=== PATIENT | female | born 1950 | race Caucasian/White ===

== ENCOUNTER 2017-02-09 11:04 | Emergency (ER) | payer MEDICARE, MEDICAID ==
[~2017-02-09] VITALS: Ht 157.5 cm; Wt 72.6 kg
[2017-02-09 15:11] VITALS: BP 165/89
== END 2017-02-09 15:03 | disposition home or self-care (01) ==
LOC: ER 11:04 → EDBD 11:04 → EDSEX 11:04 → EDUNIT# 11:04 → ER 15:03
DX: M16.12 Unilateral primary osteoarthritis, left hip (principal); F17.210 Nicotine dependence, cigarettes, uncomplicated; Z00.00 Encounter for general adult medical examination without abnormal findings; W18.39XA Other fall on same level, initial encounter; Y93.89 Activity, other specified; Y92.89 Other specified places as the place of occurrence of the external cause; Y99.8 Other external cause status
CPT/HCPCS: 93005

== ENCOUNTER 2017-12-03 21:02 | Emergency (ER) | payer MEDICARE, MEDICAID ==
[~2017-12-03] VITALS: Ht 162.6 cm; Wt 81.6 kg
[2017-12-03 22:50] LABS: Basophils # (auto) 0 uL; Basophils % (auto) 0.6 % (0.0-2.0); Eosinophils # (auto) 0.1 uL; Hematocrit 37.6 % (36.0-46.0); Hemoglobin 12.8 g/dL (12.2-16.2); Lymphocytes # (auto) 1.6 uL; Lymphocytes % (auto) 21.9 % (10.0-50.0); Mean Corpuscular Hemoglobin 31.3 pg (28.0-32.0); Mean Corpuscular Hgb Conc. 33.9 g/dL (32.0-36.0); Mean Corpuscular Volume 92.3 fL (80.0-100.0); Monocytes # (auto) 0.7 uL; Monocytes % (auto) 9.3 % (0.0-12.0); Neutrophils % (auto) 67.2 % (37.0-80.0); Platelet Count (auto) 300 10^3/uL (140-450); Red Blood Cells 4.08 10^6/uL (4.0-5.20); Red Cell Distribution Width 14.9 % (11.8-14.3); White Blood Cell 7.4 10^3/uL (4.4-10.8)
[2017-12-03 23:06] LABS: Alanine Aminotransferase 18 U/L (13-56); Albumin 2.8 g/dL (3.4-5.0); Anion Gap 10 (5-15); Aspartate Aminotransferase 14 U/L (15-37); Blood Urea Nitrogen 13 mg/dL (7-18); Calcium 6.7 mg/dL (8.5-10.1); Carbon Dioxide 19 mmol/L (21-32); Chloride 102 mmol/L (98-107); GFR African American 131 mL/min; GFR Non-African American 108 mL/min; Glucose 91 mg/dL (74-106); Partial Thromboplastin Time 24.4 sec (23.78-33.04); Potassium 3.6 mmol/L (3.5-5.1); Prothrombin Time 10.7 sec (9.27-12.13); Sodium 131 mmol/L (136-145)
[2017-12-03 23:11] LABS: Alkaline Phosphatase 87 U/L (45-117); Bilirubin, Total 0.1 mg/dL (0.2-1.0); Total Protein 5.3 g/dL (6.4-8.2)
[2017-12-04 02:22] VITALS: BP 177/94
== END 2017-12-04 03:33 | disposition home or self-care (01) ==
LOC: EDBD 21:02 → ER 21:06
DX: R41.82 Altered mental status, unspecified (principal); G92 Toxic encephalopathy; F17.210 Nicotine dependence, cigarettes, uncomplicated; Z90.710 Acquired absence of both cervix and uterus; T42.4X1A Poisoning by benzodiazepines, accidental (unintentional), initial encounter; Y92.89 Other specified places as the place of occurrence of the external cause
CPT/HCPCS: 36415; 70450; 80053; 82962; 84484; 85025; 85610; 85730; 93005

== ENCOUNTER 2019-03-14 13:03 | Emergency (ER) | payer MEDICARE, MEDICAID ==
[~2019-03-14] VITALS: Ht 162.6 cm; Wt 81.6 kg
[2019-03-14 15:46] LABS: Basophils # (auto) 0.1 uL; Eosinophils # (auto) 0.1 uL; Eosinophils % (auto) 1.5 % (0.0-7.0); Hematocrit 35.2 % (36.0-46.0); Hemoglobin 11.7 g/dL (12.2-16.2); Lymphocytes # (auto) 1.7 uL; Lymphocytes % (auto) 29.5 % (10.0-50.0); Mean Corpuscular Hemoglobin 30.9 pg (28.0-32.0); Mean Corpuscular Hgb Conc. 33.2 g/dL (32.0-36.0); Monocytes # (auto) 0.6 uL; Neutrophils # (auto) 3.3 uL; Platelet Count (auto) 293 10^3/uL (140-450); Red Blood Cells 3.78 10^6/uL (4.0-5.20); Red Cell Distribution Width 17.1 % (11.8-14.3); White Blood Cell 5.7 10^3/uL (4.4-10.8)
[2019-03-14 15:58] LABS: Albumin 3.8 g/dL (3.4-5.0); Anion Gap 6 (5-15); BUN/Creatinine Ratio 22.8; Blood Alcohol < 3.0 mg/dL (0-5); Blood Urea Nitrogen 18 mg/dL (7-18); Calcium 9.3 mg/dL (8.5-10.1); Carbon Dioxide 26 mmol/L (21-32); Chloride 107 mmol/L (98-107); GFR African American 93 mL/min; GFR Non-African American 77 mL/min; Glucose 91 mg/dL (74-106); Magnesium 2.1 mg/dL (1.6-2.6); Potassium 4.3 mmol/L (3.5-5.1); Salicylate 2.3 mg/dL (2.8-20.0); Sodium 139 mmol/L (136-145)
[2019-03-14 16:01] LABS: Alanine Aminotransferase 20 U/L (13-56); Alkaline Phosphatase 88 U/L (45-117); Aspartate Aminotransferase 17 U/L (15-37); Bilirubin, Total 0.2 mg/dL (0.2-1.0)
[2019-03-14 16:14] LABS: Acetaminophen < 2.0 ug/mL (10-30)
[2019-03-14 16:17] LABS: Alcohol, Urine < 3.0 mg/dL (0-5)
[2019-03-14 16:19] LABS: Amphetamine Screen, Urine NEGATIVE (NEGATIVE); Barbiturate Scree,Urine NEGATIVE (NEGATIVE); Benzodiazephine Screen, Urine POSITIVE (NEGATIVE); Cannabinoid Screen, Urine NEGATIVE (NEGATIVE); Cocaine Screen, Urine NEGATIVE (NEGATIVE); Opiate Scree,Urine NEGATIVE (NEGATIVE); Phencyclidine Screen, Urine NEGATIVE (NEGATIVE)
[2019-03-14 16:34] LABS: Urine Amorphous Crystal FEW /hpf (None Seen); Urine Bacteria FEW /hpf (None Seen); Urine Blood Negative /uL (Negative); Urine Hyaline Cast FEW /lpf (0 - 2); Urine Mucus FEW (None Seen); Urine Specific Gravity 1.026 (1.001-1.035); Urine WBC 13 /hpf (0 - 5)
[2019-03-14] MEDS ORDERED: QUET50TA PO (19:06)
[2019-03-14] MEDS ORDERED: OXCA600T3 PO (19:10)
[2019-03-14] MEDS ORDERED: ALPR0.254 PO (19:10)
[2019-03-14] MEDS ORDERED: MIRT30TA PO (19:10)
[2019-03-14] MEDS ORDERED: CIPROFLOXACIN HCL 500 MG TAB PO ONE (22:00)
[2019-03-14] MEDS ORDERED: ACETAMINOPHEN 325 MG TAB PO ONE (22:30)
[2019-03-15] MEDS ORDERED: MIRTAZAPINE 30 MG TAB PO ONE (01:45)
[2019-03-15] MEDS ORDERED: hydrOXYzine 25 MG TAB or CAP PO PRN (01:45)
[2019-03-15] MEDS ORDERED: ALPRAZolam 0.25 MG TAB PO PRN (01:45)
[2019-03-15] MEDS ORDERED: QUEtiapine FUMARATE 25 MG TAB PO ONE (01:45)
[2019-03-15] MEDS ORDERED: DOCUSATE SOD 100 MG CAP PO PRN (01:45)
[2019-03-15] MEDS ORDERED: GABAPENTIN 300 MG CAP PO SCH (06:00)
[2019-03-15] MEDS ORDERED: OXcarbazepine 300 MG TAB PO SCH (10:00)
[2019-03-15] MEDS ORDERED: CHOLECALCIFEROL (VITD3) 1,000IU=25mCg TAB PO SCH (10:00)
[2019-03-15] MEDS ORDERED: LISINOPRIL 20 MG TAB PO SCH (10:00)
[2019-03-15] MEDS ORDERED: TICAGRELOR 60 MG TAB PO SCH (10:00)
[2019-03-15] MEDS ORDERED: ASPirin-EC 81 mg tab PO SCH (10:00)
[2019-03-15] MEDS ORDERED: CALCIUM CARB 500 MG CHEW TAB PO SCH (10:00)
[2019-03-15] MEDS ORDERED: FLUTICASONE PROP NASAL SPR 0.05 % (50MCG) 16GM EACHNOSTRI SCH (10:00)
[2019-03-15] MEDS ORDERED: FUROSEMIDE 20 MG TAB PO SCH (10:00)
[2019-03-15] MEDS ORDERED: METOPROLOL SUCCINATE XL 50 MG TAB PO SCH (10:00)
[2019-03-15 10:45] VITALS: BP 135/80
[2019-03-15] MEDS ORDERED: ATORVASTATIN 20 MG TAB PO SCH (22:00)
[2019-03-15] MEDS ORDERED: MIRTAZAPINE 30 MG TAB PO SCH (22:00)
[2019-03-15] MEDS ORDERED: QUEtiapine FUMARATE 25 MG TAB PO SCH (22:00)
== END 2019-03-15 11:00 | disposition short-term general hospital (02) ==
LOC: ER 13:03 → EDBD 13:03 → ER 03-15 11:00
DX: F32.9 Major depressive disorder, single episode, unspecified (principal); R45.851 Suicidal ideations; F41.9 Anxiety disorder, unspecified; I10 Essential (primary) hypertension; F17.210 Nicotine dependence, cigarettes, uncomplicated
CPT/HCPCS: 36415; 71045; 80053; 80307; 80320; 80329; 81001; 83735; 85025; 93005

== ENCOUNTER 2019-05-13 14:37 | Emergency (ER) | payer MEDICARE, MEDICAID ==
[~2019-05-13] VITALS: Ht 167.6 cm; Wt 81.6 kg
[~2019-05-13 14:37] MED LIST: ALPR0.254 PO; MIRT30TA PO; OXCA600T3 PO; QUET50TA PO
[2019-05-13] MEDS ORDERED: SODIUM CHLORIDE 0.9% 1,000 ML IV ONE (15:53)
[2019-05-13] MEDS ORDERED: PROMETHAZINE HCL 25 MG/ML 1ML IV ONE (16:00)
[2019-05-13] MEDS ORDERED: KETOROLAC TROMETH 15 mg/ml 1ML VL IV ONE (16:00)
[2019-05-13 16:54] LABS: Basophils # (auto) 0.1 uL; Basophils % (auto) 0.8 % (0.0-2.0); Eosinophils # (auto) 0 uL; Eosinophils % (auto) 0.4 % (0.0-7.0); Hematocrit 35.3 % (36.0-46.0); Hemoglobin 11.5 g/dL (12.2-16.2); Lymphocytes # (auto) 1.7 uL; Lymphocytes % (auto) 21.4 % (10.0-50.0); Mean Corpuscular Hemoglobin 28.7 pg (28.0-32.0); Mean Corpuscular Hgb Conc. 32.6 g/dL (32.0-36.0); Mean Corpuscular Volume 88.1 fL (80.0-100.0); Monocytes # (auto) 0.7 uL; Monocytes % (auto) 8.9 % (0.0-12.0); Neutrophils # (auto) 5.4 uL; Neutrophils % (auto) 68.5 % (37.0-80.0); Nucleated Red Blood Cells % 0.1 %; Platelet Count (auto) 308 10^3/uL (140-450); Red Blood Cells 4.01 10^6/uL (4.0-5.20); Red Cell Distribution Width 16.3 % (11.8-14.3); White Blood Cell 7.8 10^3/uL (4.4-10.8)
[2019-05-13 17:14] LABS: Albumin 3.9 g/dL (3.4-5.0); Calcium 8.5 mg/dL (8.5-10.1); Magnesium 1.9 mg/dL (1.6-2.6); Potassium 3.4 mmol/L (3.5-5.1)
[2019-05-13 17:17] LABS: BUN/Creatinine Ratio 22.2; Bilirubin, Total 0.2 mg/dL (0.2-1.0); Total Protein 7.1 g/dL (6.4-8.2)
[2019-05-13] MEDS ORDERED: POTASSIUM EFFERVESENT TAB 25 MEQ PO ONE (17:30)
[2019-05-13 18:02] LABS: Urine Bacteria NONE SEEN /hpf (None Seen); Urine Blood Negative /uL (Negative); Urine Hyaline Cast FEW /lpf (0 - 2); Urine Mucus FEW (None Seen); Urine Specific Gravity 1.026 (1.001-1.035); Urine WBC 13 /hpf (0 - 5)
[2019-05-13 18:16] VITALS: BP 169/82
== END 2019-05-13 19:06 | disposition home or self-care (01) ==
LOC: EDBD 14:37 → ER 14:37
DX: M47.26 Other spondylosis with radiculopathy, lumbar region (principal); E87.6 Hypokalemia; F17.210 Nicotine dependence, cigarettes, uncomplicated; I11.0 Hypertensive heart disease with heart failure; I50.9 Heart failure, unspecified; J44.9 Chronic obstructive pulmonary disease, unspecified; Z90.710 Acquired absence of both cervix and uterus; Z86.73 Personal history of transient ischemic attack (TIA), and cerebral infarction without residual deficits; Z88.8 Allergy status to other drugs, medicaments and biological substances; Z79.899 Other long term (current) drug therapy
CPT/HCPCS: 36415; 72131; 80053; 81001; 83735; 85025; 93005; 96374; 96375; 99284; J1885; J2550; J7030